=== PATIENT | male | born 1990 | race Caucasian/White ===

== ENCOUNTER → 2018-08-11 | Outpatient (REF) ==
[~2018-08-11] MED LIST: ALL-DPT PO; BACDS PO; CEPH500T7 PO; COLC0.6T2 PO; EPIN0.3P15 IM; FAMO20TA28 PO; FEXO30TA36 PO; HYDR-3503 PO; INDO-1 PO; NO ROUTINE MEDS; NO RTN MEDS; NYST15CR32 TP; OXYC-854 PO; OXYC-865 PO; PRED20TA6 PO; vitamins
--- NOTE | 2018-08-11 14:01 | RADIOLOGY IMAGING REPORT ---
FACILITY: [facility] [place] PATIENT NAME: Clem Pfeiffer : 1990 MR: [id number] V: [id number] EXAM DATE: ORDERING PHYSICIAN: RACHEL JACKSON TECHNOLOGIST: Location: [facility] [place] Patient: Clem Pfeiffer : 1990 Visit/Account:[id number] Date of Sevice: 08/11/2018 Exam type: ELBOW 3 VIEW LEFT History: Left elbow contracture, no known injury, unable to straighten elbow for two years Comparison: September 07, 2016. Findings: Images are limited as the patient is unable to straighten his elbow. There is no evidence of acute f racture or dislocation involving the left elbow. No lytic or blastic bone lesion is seen. No signif icant arthritic changes identified. No radiopaque foreign bodies are seen IMPRESSION: 1. Limited study as the patient is unable to straighten his elbow otherwise no radiographic abnormal ities seen Report Dictated By: Melisa Barros MD at 08/11/2018 1:52 PM Report E-Signed By: Melisa Barros MD at 08/11/2018 1:54 PM WSN:[id number]
== END ==
LOC: RAD 12:25
PROVIDERS: ATTEND Emergency Medicine
DX: M24.522 Contracture, left elbow (principal)

== ENCOUNTER → 2018-08-17 | Outpatient (REF) ==
--- NOTE | 2018-08-17 17:04 | RADIOLOGY IMAGING REPORT ---
FACILITY: [facility] [place] PATIENT NAME: Clem Pfeiffer : 1990 MR: [id number] V: [id number] EXAM DATE: ORDERING PHYSICIAN: CHRISTINE MAYER TECHNOLOGIST: Location: [facility] Patient: Clem Pfeiffer : 1990 Visit/Account:[id number] Date of Sevice: 08/17/2018 MRI left elbow INDICATION: Elbow pain and decreased range of motion. COMPARISON: Plain films 08/11/2018 are reviewed. TECHNIQUE: Multiplanar, multisequence MRI examination is performed of the left elbow without contrast . FINDINGS: This examination is limited due to patient motion throughout the study. Given the limitations of patient motion, no definite fracture is seen to involve the distal humerus, proximal radius or the proximal ulna. The elbow joint is distended with bright T2 signal consistent w ith a joint effusion and/or synovitis. No definite erosive changes are seen. Correlate clinically. The biceps and brachialis tendons appear grossly intact. Triceps insertion also appears maintained. Laterally, there is thickening and increased T2 signal involving the common extensor tendon at its or igin from the lateral epicondyle. No discrete tear. Correlate for lateral epicondylitis symptoms. Rad ial collateral ligament is felt to be intact but is not well evaluated due to motion. Medially, the common flexor tendon is felt to be intact at its origin. Ulnar collateral ligament is n ot well evaluated but is felt to be grossly intact. No evidence of olecranon bursitis. IMPRESSION: 1. Markedly limited study due to patient motion throughout the exam. 2. Nonspecific left elbow joint effusion and/or synovitis. 3. Common extensor tendinopathy at the origin from the lateral epicondyle with mild surrounding edema . Correlate for lateral epicondylitis symptoms. Report Dictated By: Christopher Madrid at 08/17/2018 4:52 PM Report E-Signed By: Christopher Madrid at 08/17/2018 5:00 PM WSN:[id number]
== END ==
LOC: MRI 13:49
PROVIDERS: ATTEND Orthopaedic Surgery Orthopaedic Surgery of the Spine
DX: M25.522 Pain in left elbow (principal)

== ENCOUNTER → 2018-08-25 | Outpatient (REF) ==
--- NOTE | 2018-08-25 16:28 | RADIOLOGY IMAGING REPORT ---
FACILITY: [facility] PATIENT NAME: Clem Pfeiffer : 1990 MR: [id number] V: [id number] EXAM DATE: ORDERING PHYSICIAN: CHRISTINE MAYER TECHNOLOGIST: Location: [facility] Patient: Clem Pfeiffer : 1990 Visit/Account:[id number] Date of Sevice: 08/25/2018 CT of the left elbow INDICATION: Chronic elbow pain. Unable to fully extend. COMPARISON: Plain films 08/11/2018 are reviewed. Technique: Axial CT images were obtained through the left elbow. Reformatted coronal and sagittal im ages were reviewed. One of the following dose optimization techniques was utilized in the performance of this exam: Autom ated exposure control; adjustment of the mA and/or kV according to the patient's size; or use of an i terative reconstruction technique. Specific details can be referenced in the facility's radiology C T exam operational policy. FINDINGS: No acute fracture deformity is identified at the left elbow. The alignment is maintained. Small radio capitellar osteophytes are seen. There are small osteophytes noted at the coronoid process. Small ost eophytes involve the olecranon posteriorly in the region of the olecranon fossa. In this location, a small joint body is identified. This is seen along the lateral margin of the olecranon fossa (series #4 image 43). This joint body measures 5 mm in size. Osteophytes involve the humerus in this region a s well. No elbow joint effusion is seen on today's exam. With respect to the soft tissues, no fluid collection. No focal inflammatory stranding. No fluid in t he region of the olecranon bursa. Forearm musculature appears normal in bulk. IMPRESSION: 1. 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 A small joint body is seen within the lateral aspect of the olecranon fossa with measurements as abov e. 2. No evidence of elbow joint effusion. Report Dictated By: Christopher Madrid at 08/25/2018 4:12 PM Report E-Signed By: Christopher Madrid at 08/25/2018 4:24 PM WSN:[id number]
== END ==
LOC: CT 01:06
PROVIDERS: ATTEND Orthopaedic Surgery Orthopaedic Surgery of the Spine
DX: M25.522 Pain in left elbow (principal)